=== PATIENT | male | born 1980 ===

== ENCOUNTER 2017-10-29 23:56 | Emergency (ER) | payer BC ==
[2017-10-30 00:26] VITALS: O2SAT 98
--- NOTE | 2017-10-30 00:45 | C.PDOC ---
History Of Present Illness 37 yo male come in for evaluation of red, painful small mass over Right axilla noted for past few hours, Pt reports, pain is localized, worse with R ight arm lifting. Otherwise, pt denies known trauma or injury, fever, chills, denies draining, CP, SOB, dyspnea, palpitation, cough, wheezing, denies weakness, sensory or vascular deficits to Right arm, denies any other active complaints. Ambulate to Ed for evaluation, not in any apparent distress. Time Seen by Provider: 10/30/17 00:00 Chief Complaint (Nursing): Abnormal Skin Integrity History Per: Patient Past Medical History Reviewed: Historical Data, Nursing Documentation, Vital Signs Vital Signs: Last Vital Signs Temp 98.1 F 10/30/17 01:10 Pulse 68 10/30/17 01:10 Resp 18 10/30/17 01:10 BP 121/73 10/30/17 01:10 Pulse Ox 98 10/30/17 01:10 - Medical History PMH: No Chronic Diseases Family History: States: No Known Family Hx - Social History Hx Tobacco Use: No Hx Alcohol Use: Yes Hx Substance Use: No - Immunization History Hx Tetanus Toxoid Vaccination: No Hx Influenza Vaccination: Yes Hx Pneumococcal Vaccination: No Review Of Systems Except As Marked, All Systems Reviewed And Found Negative. Constitutional: Negative for: Fever, Chills Eyes: Negative for: Vision Change ENT: Negative for: Ear Discharge, Nose Discharge Cardiovascular: Negative for: Chest Pain, Palpitations, Edema, Light Headedness Respiratory: Negative for: Cough, Shortness of Breath, Pleuritic Pain, Wheezing Skin: Positive for: Lesions Neurological: Negative for: Weakness, Numbness, Altered Mental Status, Headache , Dizziness Physical Exam - Physical Exam Appears: Well, Non-toxic, No Acute Distress Skin: Normal Color, Warm, Dry, Other (Right axilla: small tender erythematous mass 1cm diameter, mobile. No flactulance, no proximal streaking.) Eye(s): bilateral: PERRL Nose: No Flaring Oral Mucosa: Moist Throat: No Drooling Neck: Normal ROM, Trachea Midline, Supple Chest: Symmetrical, No Deformity, No Tenderness Cardiovascular: Rhythm Regular, No Murmur, No JVD Respiratory: No Decreased Breath Sounds, No Accessory Muscle Use, No Stridor, No Wheezing Back: No Vertebral Tenderness, No Paraspinal Tenderness Extremity: Normal ROM (RUE), No Tenderness, No Deformity, No Swelling Extremity: Bilateral: Atraumatic Neurological/Psych: Oriented x3, Normal Speech, Normal Motor, Normal Sensation, Normal Reflexes ED Course And Treatment O2 Sat by Pulse Oximetry: 98 Pulse Ox Interpretation: Normal Progress Note: On re-evaluation, pt is Afebrile, hemodynamicaly stable. NOn- toxic, tolerate Po well in Ed. PulseOx 98% RA. ENT: no acute findings. Neck: SUpple, (-) meningeal sign. Lungs: CTA B/L, BS equal B/L. CVS: (+)S1S2, reg. RUE: small tender mobile mass over Right axilla. NO flactulance, no proximal sreaking. FAROM, no neurovascular deficits. Pt has clinical findings c/w folliculitis. Pt advised and ref. to F/u with PMD, Surgery in 2-3 days for re- eval. return to ED if any worsening or new changes. Disposition Counseled Patient/Family Regarding: Diagnosis, Need For Followup, Rx Given - Disposition Referrals: Alessio Rankin MD [Staff Provider] - Frank Grande MD [Staff Provider] - Disposition: HOME/ ROUTINE Disposition Time: 00:37 Condition: STABLE Additional Instructions: Warm salty water compresses to area twice daily Take medication as prescribed Follow up with PMD, Surgery in 2-3 days for re-evaluation. return to ED if any worsening or new changes Prescriptions: Doxycycline Hyclate [Doryx] 100 mg PO BID #14 cap Instructions: Folliculitis (DC) Forms: [employer] (Yakut) - Clinical Impression Clinical Impression: Folliculitis
[2017-10-30 01:12] VITALS: BP 121/73; PULSE 68; RESP 18; TEMP 98.1
== END 2017-10-30 01:11 | disposition home or self-care (01) ==
LOC: C.ER 23:56
DX: L73.9 Follicular disorder, unspecified (principal)